=== PATIENT | male | born 1990 | race Caucasian/White ===

== ENCOUNTER 2021-03-27 04:08 | Emergency (ER) | payer OTHER ==
[2021-03-27 04:37] VITALS: BP 135/82; PULSE 85; TEMP 98.1; BMI 28.5
[2021-03-27] MEDS ORDERED: DIPHTH,PERTUSS(ACELL),TET 0.5 ML DISP.SYRIN IM ONE ×2 (04:56→05:09)
[2021-03-27] MEDS ORDERED: ACETAMINOPHEN 500 MG TABLET (FP) PO ONE (04:56)
[2021-03-27] MEDS ORDERED: ACETAMINOPHEN 325 MG TABLET (FP) ONE ×2 (05:10)
== END 2021-03-27 06:06 | disposition home or self-care (01) ==
LOC: JER 04:08
PROC: 0HQ0XZZ Repair Scalp Skin, External Approach (ICD-10-PCS; principal; 2021-03-27)
PROC: 3E0234Z Introduction of Serum, Toxoid and Vaccine into Muscle, Percutaneous Approach (ICD-10-PCS; 2021-03-27)
DX: S01.01XA Laceration without foreign body of scalp, initial encounter (principal); Y04.8XXA Assault by other bodily force, initial encounter
CPT/HCPCS: 70450-TC; 90715; 99284-25

== ENCOUNTER 2021-04-06 07:49 | Emergency (ER) | payer OTHER ==
[2021-04-06 08:01] VITALS: BP 124/75; PULSE 75; TEMP 97; BMI 27.8
== END 2021-04-06 10:37 | disposition home or self-care (01) ==
LOC: JER 07:49
DX: S01.01XA Laceration without foreign body of scalp, initial encounter (principal); Y99.9 Unspecified external cause status; Z48.02 Encounter for removal of sutures
CPT/HCPCS: 99281-25